=== PATIENT | male | born 1965 | race Two or more races ===

== ENCOUNTER 2019-05-04 20:31 | Inpatient (IN) | payer OTHER ==
[~2019-05-04] VITALS: Ht 180.3 cm; Wt 88.5 kg
[2019-05-04] MEDS ORDERED: SODIUM CHLORIDE 0.9% 2,000 ML IV ONE ×2 (21:30→22:30)
[2019-05-04] MEDS ORDERED: INSULIN REGULAR, HUMAN 100 UNITS/ML IVP ONE ×2 (21:30→22:30)
[2019-05-04 21:49] LABS: BASOPHILS % (AUTO) 0.9 % (0.0-2.0); EOSINOPHILS % (AUTO) 0.2 % (1.0-6.0); HEMATOCRIT 47.3 % (41-53); HEMOGLOBIN 16.1 g/dL (13.5-17.5); LYMPHOCYTES % (AUTO) 15.4 % (22.0-44.0); MEAN CORPUSCULAR HEMOGLOBIN 30.6 pg (26.0-34.0); MEAN CORPUSCULAR VOLUME 90 fL (80-100); MONOCYTES # (AUTO) 0.4 K/uL (0.1-1.0); MONOCYTES % (AUTO) 6.6 % (2.0-9.0); NEUTROPHILS % (AUTO) 76.9 % (40.0-70.0); PLATELET COUNT (AUTO) 199 K/uL (150-450); RED BLOOD CELL COUNT(AUTO) 5.25 MIL/uL (4.50-5.90); RED CELL DISTRIBUTION WIDTH 13.6 % (11.5-14.5)
[2019-05-04 22:00] LABS: LACTIC ACID 1.9 mmol/L (0.4-2.0)
[2019-05-04] MEDS ORDERED: HYDROmorphone 2 MG/ML SYRINGE IVP ONE (22:00)
[2019-05-04] MEDS ORDERED: ONDANSETRON HCL 4 MG/2 ML VIAL IVP ONE (22:00)
[2019-05-04 22:04] LABS: ALANINE AMINOTRANSFERASE 70 U/L (12-78); ALBUMIN 4.3 g/dL (3.4-5.0); ALKALINE PHOSPHATASE 119 U/L (46-116); ANION GAP 21 mmol/L (8-16); ASPARTATE AMINOTRANSFERASE 35 U/L (15-37); BILIRUBIN,TOTAL 0.8 mg/dL (0.1-1.0); CARBON DIOXIDE 18 mmol/L (22-29); CHLORIDE 99 mmol/L (98-107); CREATINE KINASE, TOTAL ONLY 55 U/L (39-308); CREATININE 1.13 mg/dL (0.60-1.30); GLOMERULAR FILTR. RATE CALC > 60 mL/min (>60); POTASSIUM 5.3 mmol/L (3.5-5.1); SODIUM SERUM 138 mmol/L (136-145); TOTAL PROTEIN, SERUM 8.1 g/dL (6.4-8.2); UREA NITROGEN, BLOOD 14 mg/dL (7-18)
[2019-05-04 22:05] LABS: GLUCOSE,RANDOM 463 mg/dL (70-110)
[2019-05-04] MEDS ORDERED: DEXTROSE 5%-0.45% SODIUM CHL 1,000 ML IV PRN (22:27)
[2019-05-04] MEDS ORDERED: SODIUM CHLORIDE 0.9% 1,000 ML IV SCH (22:27)
[2019-05-04] MEDS ORDERED: POTASSIUM CHL 20 MEQ/0.45% NS 1,000 ML IV PRN (22:27)
[2019-05-04] MEDS ORDERED: INSULIN REGULAR, HUMAN 100 UNITS in SODIUM CHLORIDE 0.9% 99 ML IV PRN ×2 (22:27)
[2019-05-04] MEDS ORDERED: SODIUM CHLORIDE 0.45% 1,000 ML IV PRN (22:27)
[2019-05-04] MEDS ORDERED: POTASSIUM CHLORIDE 40 MEQ in SODIUM CHLORIDE 0.45% 1,000 ML IV PRN (22:27)
[2019-05-04] MEDS ORDERED: DEXTROSE 50%-WATER 25 GM/50 ML SYRINGE IVP PRN (22:30)
[2019-05-04] MEDS ORDERED: ACETAMINOPHEN 325 MG TABLET PO PRN (22:30)
[2019-05-04] MEDS ORDERED: NITROGLYCERIN 2% (1 GM=INCH) PACKET TP ONE (22:30)
[2019-05-04] MEDS ORDERED: 0.9% SODIUM CHLORIDE 10 ML SYRINGE IVP PRN (22:30)
[2019-05-04] MEDS ORDERED: ASPIRIN 81 MG CHEWABLE TABLET PO ONE (22:30)
[2019-05-04] MEDS ORDERED: ONDANSETRON HCL 4 MG/2 ML VIAL IVP PRN (22:30)
[2019-05-04 22:35] LABS: B-TYPE NATRIURETIC PEPTIDE < 5 pg/mL (0-100)
[2019-05-04] MEDS ORDERED: LORazepam 2 MG/ML VIAL IVP ONE (23:00)
[2019-05-04 23:09] LABS: ANION GAP 18 mmol/L (8-16); CALCIUM, TOTAL 7.9 mg/dL (8.8-10.5); CARBON DIOXIDE 17 mmol/L (22-29); CHLORIDE 106 mmol/L (98-107); CREATININE 1.01 mg/dL (0.60-1.30); GLOMERULAR FILTR. RATE CALC > 60 mL/min (>60); GLUCOSE,RANDOM 314 mg/dL (70-110); SODIUM SERUM 141 mmol/L (136-145); UREA NITROGEN, BLOOD 11 mg/dL (7-18)
[2019-05-04 23:23] LABS: GLUCOSE,POINT OF CARE 290 MG/DL (70-110)
[2019-05-04 23:31] LABS: ABG A-A DIFF O2 16.3 mmHg (10-20.0); ABG BASE EXCESS -9.9 mmol/L (-2.0-3.0); ABG CARBOXYHEMOGLOBIN 0.8 % (0.0-1.5); ABG HCO3 17.5 mmol/L (22.0-26.0); ABG METHEMOGLOBIN 0.1 % (0.0-1.5); ABG OXYGEN CONTENT 19.1 mL/dL (15.0-23.0); ABG OXYGEN SATURATION 96.9 % (95.0-98.0); ABG PCO2 34 mmHg (35-45); ABG PH 7.308 (7.35-7.450); ABG TOTAL HEMOGLOBIN 14.1 G/dL (12.0-18.0); PO2, ARTERIAL BG 93.4 mmHg (84.0-92.0); SOURCE, BLOOD GAS ARTERIAL; TEMPERATURE, FAHRENHEIT, BG 97.8 FAHREN (96.0-98.6)
[2019-05-04 23:32] LABS: O2 DEVICE,BLOOD GAS ROOM AIR (ROOM AIR); SITE, BLOOD GAS RT RADIAL
[2019-05-04 23:51] LABS: BASOPHILS % (AUTO) 0.8 % (0.0-2.0); EOSINOPHILS % (AUTO) 0.4 % (1.0-6.0); HEMATOCRIT 41.4 % (41-53); HEMOGLOBIN 13.9 g/dL (13.5-17.5); LYMPHOCYTES % (AUTO) 16.8 % (22.0-44.0); MEAN CORPUSCULAR HEMOGLOBIN 29.9 pg (26.0-34.0); MEAN CORPUSCULAR HGB CONC 33.4 G/dL (31.0-37.0); MEAN CORPUSCULAR VOLUME 89 fL (80-100); MONOCYTES # (AUTO) 0.4 K/uL (0.1-1.0); MONOCYTES % (AUTO) 7.3 % (2.0-9.0); NEUTROPHILS # (AUTO) 4.5 K/uL (1.8-7.7); NEUTROPHILS % (AUTO) 74.7 % (40.0-70.0); PLATELET COUNT (AUTO) 164 K/uL (150-450); RED BLOOD CELL COUNT(AUTO) 4.64 MIL/uL (4.50-5.90); RED CELL DISTRIBUTION WIDTH 13.5 % (11.5-14.5)
[2019-05-05] VITALS (9 sets, daily range): BP systolic 92–122; BP diastolic 49–81
[2019-05-05] MEDS: INSULIN REGULAR, HUMAN 100 UNITS/ML IVP PRN ×2 (01:10→02:18)
[2019-05-05] MEDS ORDERED: PNEUMOCOCCAL VACCINE POLYVALENT 0.5 ML VIAL [PPSV23] IM ONE (01:30)
[2019-05-05] MEDS ORDERED: INFLUENZA VIRUS VACCINE QVS 2019-20 (3YR+)/PF 60 MCG/0.5 ML SYRINGE IM ONE (01:30)
[2019-05-05] MEDS ORDERED: LORazepam 2 MG/ML VIAL IVP ONE (02:00)
[2019-05-05] MEDS ORDERED: IPRATROPIUM BROMIDE 0.5 MG/2.5 ML NEB SOLUTION NEB PRN (02:15)
[2019-05-05] MEDS ORDERED: ACETAMINOPHEN 325 MG TABLET PO PRN (02:15)
[2019-05-05] MEDS ORDERED: ONDANSETRON HCL 4 MG/2 ML VIAL IVP PRN (02:15)
[2019-05-05] MEDS ORDERED: ALBUTEROL SULFATE 2.5 MG/0.5 ML NEB SOLUTION NEB PRN (02:15)
[2019-05-05] MEDS ORDERED: BISACODYL 10 MG RECTAL RECTAL SUPPOSITORY PR PRN (02:15)
[2019-05-05] MEDS ORDERED: MAGNESIUM HYDROXIDE SUSPENSION 30 ML UDCUP PO PRN (02:15)
[2019-05-05] MEDS ORDERED: ZOLPIDEM TARTRATE 5 MG TABLET PO PRN (02:15)
[2019-05-05] MEDS: OxyCODONE HCL/ACETAMINOPHEN 10-325 MG TABLET PO PRN ×2 (02:25→17:07)
[2019-05-05 02:44] LABS: ANION GAP 8 mmol/L (8-16); CALCIUM, TOTAL 7.8 mg/dL (8.8-10.5); CARBON DIOXIDE 24 mmol/L (22-29); CHLORIDE 107 mmol/L (98-107); CREATININE 0.94 mg/dL (0.60-1.30); GLOMERULAR FILTR. RATE CALC > 60 mL/min (>60); GLUCOSE,RANDOM 293 mg/dL (70-110); POTASSIUM 3.7 mmol/L (3.5-5.1); SODIUM SERUM 139 mmol/L (136-145); UREA NITROGEN, BLOOD 10 mg/dL (7-18)
[2019-05-05] MEDS ORDERED: DEXTROSE 50%-WATER 25 GM/50 ML SYRINGE IVP PRN (03:15)
[2019-05-05] MEDS ORDERED: INSULIN LISPRO 100 UNITS/ML SQ ONE (03:15)
[2019-05-05] MEDS ORDERED: INSULIN GLARGINE,HUM.REC.ANLOG 100 UNITS/ML SQ ONE (03:15)
[2019-05-05] MEDS: SODIUM CHLORIDE 0.45% 1,000 ML IV SCH (03:25)
[2019-05-05 05:18] LABS: GLUCOSE,POINT OF CARE 297 MG/DL (70-110)
[2019-05-05 05:18] LABS: GLUCOSE,POINT OF CARE 318 MG/DL (70-110)
[2019-05-05 05:18] LABS: GLUCOSE,POINT OF CARE 241 MG/DL (70-110)
[2019-05-05 05:18] LABS: GLUCOSE,POINT OF CARE 266 MG/DL (70-110)
[2019-05-05 05:25] LABS: GLUCOSE,POINT OF CARE 206 MG/DL (70-110)
[2019-05-05] MEDS: INSULIN LISPRO 100 UNITS/ML SQ PRN ×4 (05:41→21:04)
[2019-05-05 05:42] LABS: ALANINE AMINOTRANSFERASE 52 U/L (12-78); ALBUMIN 3.2 g/dL (3.4-5.0); ALKALINE PHOSPHATASE 82 U/L (46-116); ANION GAP 9 mmol/L (8-16); ASPARTATE AMINOTRANSFERASE 23 U/L (15-37); BILIRUBIN,TOTAL 0.5 mg/dL (0.1-1.0); CALCIUM, TOTAL 7.9 mg/dL (8.8-10.5); CARBON DIOXIDE 25 mmol/L (22-29); CHLORIDE 107 mmol/L (98-107); CREATININE 0.87 mg/dL (0.60-1.30); GLOMERULAR FILTR. RATE CALC > 60 mL/min (>60); GLUCOSE,RANDOM 220 mg/dL (70-110); PHOSPHORUS 2.2 mg/dL (2.5-4.9); POTASSIUM 3.7 mmol/L (3.5-5.1); SODIUM SERUM 141 mmol/L (136-145); TOTAL PROTEIN, SERUM 5.9 g/dL (6.4-8.2); UREA NITROGEN, BLOOD 10 mg/dL (7-18)
[2019-05-05] MEDS: MORPHINE SULFATE 15 MG ER TABLET PO SCH ×2 (08:06→20:30)
[2019-05-05] MEDS: DOCUSATE SODIUM 100 MG CAPSULE PO SCH ×2 (08:06→20:31)
[2019-05-05] MEDS: HEPARIN SODIUM,PORCINE 5,000 UNITS/ML VIAL SQ SCH ×2 (08:07→17:36)
[2019-05-05] MEDS: INSULIN GLARGINE,HUM.REC.ANLOG 100 UNITS/ML SQ SCH ×2 (08:09→21:03)
[2019-05-05] MEDS ORDERED: MAGNESIUM SULFATE 2 GM/WATER 50 ML IV PRN (09:00)
[2019-05-05] MEDS ORDERED: POTASSIUM CHLORIDE 20 MEQ ER TABLET PO PRN (09:00)
[2019-05-05] MEDS ORDERED: MAGNESIUM SULFATE 4 GM/WATER 100 ML IV PRN (09:00)
[2019-05-05] MEDS ORDERED: POTASSIUM CHL 10 MEQ/WATER 50 ML IV PRN (09:00)
[2019-05-05] MEDS: LORazepam 1 MG TABLET PO PRN (10:15)
[2019-05-05] MEDS: MAGNESIUM OXIDE 400 MG TABLET PO PRN ×3 (10:15→20:30)
[2019-05-05 11:47] LABS: GLUCOMETER DEV NAME(LOC) 6N.2; GLUCOSE,POINT OF CARE 252 MG/DL (70-110)
[2019-05-05 17:13] LABS: GLUCOMETER DEV NAME(LOC) 6N.2; GLUCOSE,POINT OF CARE 334 MG/DL (70-110)
[2019-05-06 00:04] VITALS: BP 137/89
[2019-05-06] MEDS: OxyCODONE HCL/ACETAMINOPHEN 10-325 MG TABLET PO PRN ×2 (00:07→10:34)
[2019-05-06] MEDS: HEPARIN SODIUM,PORCINE 5,000 UNITS/ML VIAL SQ SCH ×2 (00:07→08:57)
[2019-05-06 05:00] VITALS: BP 123/78
[2019-05-06] MEDS: INSULIN LISPRO 100 UNITS/ML SQ PRN ×2 (05:33→11:16)
[2019-05-06] MEDS: LORazepam 1 MG TABLET PO PRN (05:41)
[2019-05-06] MEDS: SODIUM CHLORIDE 0.45% 1,000 ML IV SCH (05:44)
[2019-05-06 07:01] LABS: AMPHET/METH SCREEN,URINE NEGATIVE (NEGATIVE); BARBITURATE SCREEN, URINE NEGATIVE (NEGATIVE); BENZODIAZEPINES SCREEN,URINE NEGATIVE (NEGATIVE); CANNABINOID SCREEN,URINE NEGATIVE (NEGATIVE); COCAINE SCREEN,URINE NEGATIVE (NEGATIVE); METHADONE SCREEN, URINE NEGATIVE (NEGATIVE); OPIATE SCREEN,URINE POSITIVE (NEGATIVE)
[2019-05-06 07:16] LABS: APPEARANCE,URINE CLEAR (CLEAR); BILIRUBIN,URINE NEGATIVE (NEGATIVE); GLUCOSE, URINE (UA) >=1000 mg/dL (NEGATIVE); KETONES,URINE NEGATIVE (NEGATIVE); LEUKOCYTE ESTERASE ,URINE NEGATIVE (NEGATIVE); NITRATE,URINE NEGATIVE (NEGATIVE); OCCULT BLOOD,URINE NEGATIVE (NEGATIVE); PROTEIN,URINE NEGATIVE (NEGATIVE); UROBILINOGEN,URINE 0.2 mg/dL (<=1.0)
[2019-05-06 07:34] LABS: BACTERIA,URINE None Seen /HPF (None Seen); RBC,URINE None Seen /HPF (0-2); WBC,URINE None Seen /HPF (0-5)
[2019-05-06 07:35] LABS: GLUCOMETER DEV NAME(LOC) 4E.2; GLUCOSE,POINT OF CARE 230 MG/DL (70-110)
[2019-05-06 07:35] LABS: GLUCOMETER DEV NAME(LOC) 4E.2; GLUCOSE,POINT OF CARE 263 MG/DL (70-110)
[2019-05-06 07:41] LABS: PHENCYCLIDINE SCREEN,URINE NEGATIVE (NEGATIVE)
[2019-05-06 08:12] VITALS: BP 116/72
[2019-05-06] MEDS: MAGNESIUM OXIDE 400 MG TABLET PO PRN (08:58)
[2019-05-06] MEDS: DOCUSATE SODIUM 100 MG CAPSULE PO SCH (08:59)
[2019-05-06] MEDS: MORPHINE SULFATE 15 MG ER TABLET PO SCH (08:59)
[2019-05-06] MEDS ORDERED: MULTIVITAMINS WITH MINERALS, THERAPEUTIC TABLET PO SCH (09:00)
[2019-05-06] MEDS: INSULIN GLARGINE,HUM.REC.ANLOG 100 UNITS/ML SQ SCH (09:06)
[2019-05-06 11:13] VITALS: BP 118/62
[2019-05-06] MEDS ORDERED: INSLAN SQ (14:09)
[2019-05-06 18:44] LABS: GLUCOMETER DEV NAME(LOC) 4E.2; GLUCOSE,POINT OF CARE 310 MG/DL (70-110)
== END 2019-05-06 15:47 | disposition home or self-care (01) | DRG 420 ==
LOC: EMS 20:33 → ICU 22:30 → 4E 05-05 09:59
PROVIDERS: ADMIT Hospitalist; ATTEND Hospitalist
DX: E11.10 Type 2 diabetes mellitus with ketoacidosis without coma (principal); R56.9 Unspecified convulsions; E83.42 Hypomagnesemia; F41.9 Anxiety disorder, unspecified; M54.9 Dorsalgia, unspecified; I10 Essential (primary) hypertension; E78.5 Hyperlipidemia, unspecified; E87.6 Hypokalemia; E78.00 Pure hypercholesterolemia, unspecified; G89.4 Chronic pain syndrome; Z76.5 Malingerer [conscious simulation]; Z79.4 Long term (current) use of insulin; Z86.73 Personal history of transient ischemic attack (TIA), and cerebral infarction without residual deficits; Z91.19 Patient's noncompliance with other medical treatment and regimen; Z88.8 Allergy status to other drugs, medicaments and biological substances
CPT/HCPCS: 36600; 82805; 83036; 83605; 83735; 84100; 87040; 87081; 93005; 99291; G0378; G0480; J1170; J1644; J1815; J2060; J2405; J7030; J7050